=== PATIENT | female | born 2000 | race Caucasian/White ===

== ENCOUNTER 2020-05-30 12:43 | Emergency (ER) | payer OTHER ==
[~2020-05-30] VITALS: Ht 157.5 cm; Wt 56.1 kg
[2020-05-30 13:42] LABS: BASO % 0.3 % (0.0-1.0); EOS # 0.1 10^3/uL (0.0-0.5); EOS % 1.6 % (0.0-3.0); HEMOGLOBIN 13.3 g/dl (12.0-15.5); LYMPH # 1.7 10^3/uL (1.5-5.0); LYMPH % 29.4 % (24.0-44.0); MEAN CORPUSCULAR HEMOGLOBIN 32.7 pg (27.0-33.0); MEAN CORPUSCULAR HGB CONC 34.1 g/dl (32.0-36.5); MEAN CORPUSCULAR VOLUME 95.8 fl (80.0-96.0); MONO # 0.5 10^3/uL (0.0-0.8); MONO % 8.9 % (2.0-8.0); NEUTROPHILS # 3.4 10^3/uL (1.5-8.5); NEUTROPHILS % 59.6 % (36.0-66.0); PLATELET COUNT, AUTOMATED 204 10^3/uL (150-450); RED BLOOD COUNT 4.07 10^6/uL (4.00-5.40); WHITE BLOOD COUNT 5.8 10^3/uL (4.0-10.0)
[2020-05-30 14:09] LABS: ALBUMIN 4.3 GM/DL (3.2-5.2); BILIRUBIN,DIRECT 0.2 MG/DL (0.0-0.2); BILIRUBIN,TOTAL 0.7 MG/DL (0.2-1.0); TOTAL PROTEIN 7.3 GM/DL (6.4-8.2)
--- NOTE | 2020-05-30 15:02 | REP ---
INDICATION: pelvic pain; r/o cyst. COMPARISON: None TECHNIQUE: Transvesical and transvaginal imaging FINDINGS: The uterus measures 7.1 x 3.6 x 4.5 cm. The parenchymal echo pattern is within normal limits. The endometrial echo complex measures 9 mm in thickness and is within normal limits. The right ovary measures 3.6 x 2.6 x 2.8 cm with an RI of 0.58. Within the right ovary there is a 2 x 1.5 x 1.9 cm sized anechoic structure which exhibits posterior wall enhancement and increased through transmission. Left ovary measures 2.6 x 1.3 x 2.3 cm and is within normal limits with an RI 0.48. Urinary bladder measures 7 x 4 x 8 cm. There is a trace amount of free fluid in the cul-de-sac probably physiologic. IMPRESSION: There is a small simple cyst versus dominant ovarian follicle on the right. The examination is otherwise unremarkable. <Electronically signed by Jude Hanley > 05/30/20 [id number]
[2020-05-30 15:30] VITALS: BP 115/65
== END 2020-05-30 15:35 | disposition home or self-care (01) ==
LOC: M ED 12:43
DX: N83.201 Unspecified ovarian cyst, right side (principal)